=== PATIENT | male | born 1970 | race Caucasian/White ===

== ENCOUNTER → 2021-02-13 | Emergency (ER) | payer BC ==
[~2021-02-13] VITALS: Ht 172.7 cm; Wt 88.6 kg
[~2021-02-13] MED LIST: ATARAX50 MG PO; CEPHALEXIN500 M1 PO; LEVOXYL0.1 MG PO; PREDNISONE20 MG PO
[2021-02-13 20:30] VITALS: BP 147/84; TEMP 97
[2021-02-13 21:18] VITALS: PULSE 81
== END ==
LOC: COL.ER 20:23
DX: L03.116 Cellulitis of left lower limb (principal); L03.115 Cellulitis of right lower limb; L30.9 Dermatitis, unspecified
CPT/HCPCS: J7512